=== PATIENT | female | born 1975 | race Caucasian/White ===

== ENCOUNTER → 2018-01-13 | Day surgery (SDC) | payer OTHER ==
--- NOTE | 2018-01-14 15:30 | PATH ---
Surgical Pathology Report Patient Name: DIEGO JARRELL [facility]. Rec. #: [id number] /Age/Gender: 1975 (Age: 42) / F Account: [id number] Location: [facility] Taken: 01/13/2018 Received: 01/13/2018 Reported: 01/14/2018 Physicians: Jonas Cullen M.D. Specimen(s) Received LEFT BREAST 3:00 Clinical History Enhancing focus 3:00, left breast on MR only, suspicious Final Diagnosis BREAST, LEFT, 3:00, CORE BIOPSY: BENIGN BREAST TISSUE WITH FIBROCYSTIC CHANGES INCLUDING STROMAL FIBROSIS AND MICROCYSTS. Electronically Signed Leisa Iyer M.D. Gross Description Received in formalin, labeled, "left breast biopsy" are multiple cores and fragments of light osborn and yellow-osborn tissue having an aggregate of 3.2 x 2.0 x 0.3 cm. Entirely submitted in 2 cassettes. Time to formalin fixation: 2 minutes Total formalin fixation time: 7-8 hours ebram/01/14/2018
== END | disposition home or self-care (01) ==
LOC: FRADUS-SUR 12:50
PROVIDERS: ATTEND Surgery Surgical Oncology
PROC: 0HBT3ZX Excision of Right Breast, Percutaneous Approach, Diagnostic (ICD-10-PCS; principal; 2018-01-13)
DX: N60.32 Fibrosclerosis of left breast (principal); N60.12 Diffuse cystic mastopathy of left breast; N63.21 Unspecified lump in the left breast, upper outer quadrant
CPT/HCPCS: 19085; 77065-TC; 88305-TC; A4648; C1887